=== PATIENT | female | born 1965 | race Caucasian/White ===

== ENCOUNTER 2023-08-13 09:40 | Day surgery (SDC) | payer MEDICARE, OTHER ==
[2023-08-07 10:06] VITALS: BP 120/77
[~2023-08-13] VITALS: Ht 162.6 cm; Wt 105.9 kg
[~2023-08-13 09:40] MED LIST: CLOTRIMAZOLE-BE15 GM TOP; DICYCLOMINE HCL10 MG PO; HYDROMORPHONE HC4 MG PO; IBLOOD GLUCOSE TEST STRIP 1 EA TEST VI PRN; LACTATED RINGER'S 1,000 ML IV SCH; LIDOCAINE HCL 1% 5 ML SDV INJ ONE; METOPROLOL SUCC25 MG PO; NARCAN4 MG NS; NITROGLYCERIN12 GM TL; ONDANSETRON HCL4 MG PO; PANTOPRAZOLE SO20 MG PO; PROMETHAZINE HC25 M1 PO; PROMETHAZINE HC25 MG PR; VITAMIN D31250 MC1 PO
[2023-08-13 10:41] VITALS: BP 141/69
[2023-08-13 12:01] LABS: BASOPHILS, ABSOLUTE 0.1 %; EOSINOPHILS 1.3 % (0-6); EOSINOPHILS, ABSOLUTE 0.1; HEMATOCRIT 42.8 % (35.0-50.0); HEMOGLOBIN 14.3 g/dL (12.0-18.0); LYMPHOCYTES 29.2 % (24-44); LYMPHOCYTES, ABSOLUTE 2.9; MCH 30.8 (27-36); MCHC 33.3 g/dl (30-36); MCV 92.5 fl (81-99); MONOCYTES 7.5 % (0-12); MONOCYTES, ABSOLUTE 0.7; NEUTROPHILS, ABSOLUTE 6.1; PLATELET COUNT 241 K/uL (140-440); RBC 4.63 M/ul (4.3-5.7); RDW 13.7 (10.5-15.0)
[2023-08-13] MEDS ORDERED: LIDOCAINE HCL 2% 5 ML SDV ONE (12:01)
[2023-08-13] MEDS ORDERED: propofoL 200 MG/20 ML VIAL ONE (12:01)
--- NOTE | 2023-08-13 12:33 | NUR ---
08/13/23 Kezia3 Cecily Cabrera 1228-PATIENT ARRIVED TO PACU ON 6L MASK RR EVEN NONAROUSABLE PATIENT LAYING PRONE BANDAIDS TO LEFT AND RIGHT SIDE OF LOWER BACK CDI. IVF INFUSING. SR.
--- NOTE | 2023-08-13 12:34 | NUR ---
LE 1115: NEED FOR ULTRASOUND IV ON THIS PATIENT IS RELAYED TO ME. I PRESENT TO THE ROOM AND PATIENT REQUESTS AN IV IN HER LEFT ARM. SITE RITE ULTRASOUND IS USED TO VISUALIZE VENOUS ANATOMY. VEIN IDENTIFIED IN LEFT FOREARM LESS THAN 0.5 CM FROM THE SURFACE OF HER SKIN. LIDOCAINE SUBCUTANEOUS INJECTION IS USED. PATIENT JUMPS, CRIES OUT AND BEGINS BREATHING > 30 RESPIRATIONS/MINUTE. PATIENT CALMS AFTER APPROXIMATELY 3 MINUTES. UNABLE TO VISUALIZE THE VEIN ONCE MY PIV CATHETER IS UNDER THE SURVACE OF PATIENT'S SKIN. 2ND ATTEMPT IN LEFT UPPER ARM RESULTS IN THE SAME REACTION FROM THE PATIENT, DESPITE LIDOCAINE SUBCUTANEOUS NUMBING ATTEMPT. AGAIN, I AM UNABLE TO LOCATE THE VEIN AFTER 3 MINUTES. GAUZE AND COBAN ARE PLACED OVER THESE SITES AND NURSING TRAVEL MED SURG RN IS NOTIFIED OF NEED FOR ANOTHER NURSE TO START THIS PATIENT'S IV.
[2023-08-13 13:01] VITALS: BP 130/68
--- NOTE | 2023-08-14 11:57 | EKG ---
[facility] [address] [facility] [place], [place] [address] Signed Normal sinus rhythm Normal ECG No previous ECGs available Confirmed by Belinda Flowers ([id number]) on 08/14/2023 11:57:35 AM Electronically Signed By: BELINDA FLOWERS MD 08/14/23 1157 PATIENT NAME: GABE LYN Electrocardiogram DATE OF : 65 PHYSICIAN: BELINDA FLOWERS MD REPORT #: [id number] REPORT IS CONFIDENTIAL AND NOT TO BE RELEASED WITHOUT AUTHORIZATION
[2023-08-14 14:32] LABS: HCV QNT BY NAAT (IU/ML) Not Detected (()); HCV QNT BY NAAT (LOG IU/ML) Not Detected (()); HCV QNT BY NAAT INTERP Not Detected (Not Detected)
== END 2023-08-13 13:10 | disposition home or self-care (01) ==
LOC: OPS 09:40 → DS 09:40 → OPS 12:00
PROVIDERS: ATTEND Specialist
DX: D47.1 Chronic myeloproliferative disease (principal); F43.12 Post-traumatic stress disorder, chronic; D72.829 Elevated white blood cell count, unspecified; Z88.8 Allergy status to other drugs, medicaments and biological substances
CPT/HCPCS: 01112; 36415; 85025; 87522; 93005; 93010; J2001; J2704; J7121

== ENCOUNTER 2024-04-11 12:35 | Emergency (ER) | payer MEDICARE, OTHER ==
[~2024-04-11] VITALS: Ht 162.6 cm; Wt 103.0 kg
--- OUTSIDE RECORDS SUMMARY | ~2024-04-11 | XMS | Continuity of Care Document ---
Demographics + + + | Address | [address] | | | [place] [address] | + + + | Preferred Language | Unknown | + + + | Marital Status | Unknown | + + + | Hindu Affiliation | Unknown | + + + | Race | White | + + + | Ethnic Group | Unknown | + + + Author + + + | Author | [facility] | + + + | Organization | [facility] | + + + | Address | [address] | | | [place] [address] | + + + | Phone | | + + + Care Team Providers + + + + | Care Figure Clerk Name | Role | Phone | + + + + Unavailable | Unavailable | + + + + Unavailable | Unavailable | + + + + Allergies No information. Encounters No information. Functional Status No information. Immunizations No information. Medications + + + + | date | description | facility | + + + + | 2024-01-14 00:00 | HYDROmorphone HCl 4 MG | [facility] | | | Oral Tablet | | + + + + | 2024-01-14 00:00 | HYDROmorphone HCl 4 MG | [facility] | | | Oral Tablet | | + + + + | 2024-01-16 00:00 | Scopolamine 1 MG/3DAYS | [facility] | | | Transdermal Patch 72 Hour | | + + + + | 2024-01-16 00:00 | Scopolamine 1 MG/3DAYS | [facility] | | | Transdermal Patch 72 Hour | | + + + + | 2024-01-16 00:00 | 72 HR scopolamine 0.0139 | [facility] | | | MG/HR Transdermal System | | + + + + | 2024-01-16 00:00 | 72 HR scopolamine 0.0139 | [facility] | | | MG/HR Transdermal System | | + + + + | 2024-01-14 00:00 | hydromorphone | [facility] | | | hydrochloride 4 MG Oral | | | | Tablet | | + + + + | 2024-01-14 00:00 | hydromorphone | [facility] | | | hydrochloride 4 MG Oral | | | | Tablet | | + + + + Problems + + + + | date | description | facility | + + + + | 2024-01-16 00:00 | Morbid obesity (disorder) | [facility] | + + + + | 2024-01-16 00:00 | Morbid obesity (disorder) | [facility] | | | | | + + + + | 2024-01-16 00:00 | OBESITY, MORBID, BMI >39 | [facility] | + + + + | 2024-01-16 00:00 | OBESITY, MORBID, BMI >39 | [facility] | | | | | + + + + | 2024-01-16 00:00 | Excessive oral intake | [facility] | | | (finding) | | + + + + | 2024-01-16 00:00 | Excessive oral intake | [facility] | | | (finding) | | + + + + | 2024-01-16 00:00 | NAUSEA ALONE | [facility] | + + + + | 2024-01-16 00:00 | NAUSEA ALONE | [facility] | | | | | + + + + | 2024-01-16 00:00 | Obesity Morbid Due To | [facility] | | | Excess Calories | | + + + + | 2024-01-16 00:00 | Obesity Morbid Due To | [facility] | | | Excess Calories | | + + + + | 2024-01-16 00:00 | Nausea | [facility] | + + + + | 2024-01-16 00:00 | Nausea | [facility] | | | | | + + + + Procedures No information. Results/Labs No information. Social History + + + + | date | description | facility | + + + + | 2024-01-14 00:00 | Unknown if ever smoked | [facility] | + + + + | 2024-01-14 00:00 | Ex-smoker (finding) | [facility] | + + + + | 2024-01-16 00:00 | Unknown if ever smoked | [facility] | + + + + | 2024-01-16 00:00 | Ex-smoker (finding) | [facility] | + + + + | 2024-02-11 00:00 | Unknown if ever smoked | [facility] | | | | | + + + + | 2024-02-11 00:00 | Ex-smoker (finding) | [facility] | | | | | + + + + | 2024-02-12 00:00 | Unknown if ever smoked | [facility] | | | | | + + + + | 2024-02-12 00:00 | Ex-smoker (finding) | [facility] | | | | | + + + + Vital Signs + + + + + | date | measurement | value | units | + + + + + | 2024-01-16 00:00 | BMI | 40.2 | 1 | + + + + + | 2024-01-16 00:00 | BP_diastolic | 78 | mmHg | + + + + + | 2024-01-16 00:00 | BP_systolic | 132 | mmHg | + + + + + | 2024-01-16 00:00 | BSA | 2.1 | 1 | + + + + + | 2024-01-16 00:00 | heart_rate | 1|1| | completed | + + + + + | 2024-01-16 00:00 | heart_rate | 87 | /min | + + + + + | 2024-01-16 00:00 | height_metric | 162.56 | cm | + + + + + | 2024-01-16 00:00 | height_standard | 64 | in | + + + + + | 2024-01-16 00:00 | o2_saturation | 94 | % | + + + + + | 2024-01-16 00:00 | respiration_rate | 16 | /min | + + + + + | 2024-01-16 00:00 | temperature_metric | 36.67 | C | | | | | | + + + + + | 2024-01-16 00:00 | | 98 | F | | | temperature_standar | | | | | d | | | + + + + + | 2024-01-16 00:00 | weight_metric | 106.14 | kg | + + + + + | 2024-01-16 00:00 | weight_standard | 234 | lb | + + + + + | 2024-01-16 00:00 | BMI | 40.2 | 1 | + + + + + | 2024-01-16 00:00 | BP_diastolic | 78 | mmHg | + + + + + | 2024-01-16 00:00 | BP_systolic | 132 | mmHg | + + + + + | 2024-01-16 00:00 | BSA | 2.1 | 1 | + + + + + | 2024-01-16 00:00 | heart_rate | 1|1| | completed | + + + + + | 2024-01-16 00:00 | heart_rate | 87 | /min | + + + + + | 2024-01-16 00:00 | height_metric | 162.56 | cm | + + + + + | 2024-01-16 00:00 | height_standard | 64 | in | + + + + + | 2024-01-16 00:00 | o2_saturation | 94 | % | + + + + + | 2024-01-16 00:00 | respiration_rate | 16 | /min | + + + + + | 2024-01-16 00:00 | temperature_metric | 36.67 | C | | | | | | + + + + + | 2024-01-16 00:00 | | 98 | F | | | temperature_standar | | | | | d | | | + + + + + | 2024-01-16 00:00 | weight_metric | 106.14 | kg | + + + + + | 2024-01-16 00:00 | weight_standard | 234 | lb | + + + + +"
[~2024-04-11 12:35] MED LIST changes: -IBLOOD GLUCOSE TEST STRIP 1 EA TEST VI PRN; -LACTATED RINGER'S 1,000 ML IV SCH; -LIDOCAINE HCL 1% 5 ML SDV INJ ONE
[2024-04-11] MEDS ORDERED: DILAUDID4 MG PO ×2 (13:14)
[2024-04-11] MEDS ORDERED: HYDROmorphone HCL 2 MG TAB PO ONE (13:15)
[2024-04-11 13:25] VITALS: BP 131/73
== END 2024-04-11 13:25 | disposition home or self-care (01) ==
LOC: ED 12:35
DX: F11.23 Opioid dependence with withdrawal (principal); G89.29 Other chronic pain; I10 Essential (primary) hypertension; Z79.899 Other long term (current) drug therapy; Z88.5 Allergy status to narcotic agent; Z91.040 Latex allergy status; Z88.1 Allergy status to other antibiotic agents; Z88.2 Allergy status to sulfonamides
CPT/HCPCS: 99283

== ENCOUNTER 2025-02-16 08:37 | Day surgery (SDC) | payer MEDICARE, OTHER ==
[~2025-02-16] VITALS: Ht 162.6 cm; Wt 101.0 kg
[~2025-02-16 08:37] MED LIST changes: +DILAUDID4 MG PO; +IBLOOD GLUCOSE TEST STRIP 1 EA TEST VI PRN; +LACTATED RINGER'S 1,000 ML IV SCH; +LIDOCAINE HCL 1% 5 ML SDV INJ ONE
[2025-02-16 09:00] VITALS: BP 121/60
[2025-02-16 09:29] LABS: BASOPHILS 0.5 % (0.1-1.2); EOSINOPHILS 2.4 % (0.7-5.8); LYMPHOCYTES 29.6 % (19.3-51.7); MCH 31.4 PG (25.6-32.2); MCHC 33.0 g/dL (32.2-35.5); MCV 95.4 fL (79.4-94.8); MONOCYTES 6.7 % (4.7-12.5); NEUTROPHILS 60.1 % (34.0-71.1); RBC 4.77 M/uL (3.93-5.22)
[2025-02-16] MEDS ORDERED: LIDOCAINE HCL 2% 5 ML SDV ONE (11:00)
--- NOTE | 2025-02-16 11:28 | NUR ---
02/16/25 1128 Sandra Nielsen 1120: PT ARRIVES TO PACU REACTIVE/DROWSY. SHE IS CONNECTED TO MONITORS. REPROT RECEIVED FROM OR AND LAB AID. DANIEL 1127: REPORT RECEIVED FROM DR. LOBO. SHE ORDERED AN UPPER GI STUDY IN RADIOLOGY TO RULE OUT ACHALIA.
[2025-02-16 12:03] VITALS: BP 123/61
--- NOTE | 2025-02-21 15:07 | PATH ---
[facility] [address] [place], [place] [address] Signed SPECIMEN(S): A ANTRUM BIOPSY SPECIMEN(S): B ANTRUM BIOPSY SPECIMEN(S): C BODY BIOPSY SPECIMEN SOURCE: A. ANTRUM BIOPSY B. ANTRUM BIOPSY C. BODY BIOPSY CLINICAL HISTORY: Pre-: Dysphagia. Post: Gastritis. Rule out: A) pylorus. B) antrum. FINAL PATHOLOGIC DIAGNOSIS: A. antrum/pylorus biopsy: - Mild reactive gastropathy. - Negative for H. pylori like organisms by HE stain. - Negative for intestinal metaplasia, dysplasia, or malignancy. B. antrum/pylorus biopsy: - Unremarkable gastric body type mucosa. - Negative for H. pylori like organisms by HE stain. - Negative for intestinal metaplasia, dysplasia, or malignancy. C. stomach body biopsy: - Unremarkable gastric body type mucosa. - Negative for H. pylori like organisms by HE stain. - Negative for intestinal metaplasia, dysplasia, or malignancy. IRG MICROSCOPIC EXAMINATION: Histologic sections of all submitted blocks (or IHC as applicable) are digitally scanned and examined. These findings, together with the gross examination, support the pathologic diagnosis. GROSS DESCRIPTION: A. The specimen, labeled and designated "Nimco Stinson, " and designated on the requisition "antrum/pylorus biopsy," is received in formalin and consists of one atkinson soft tissue fragment that is 0.7 cm in greatest dimension. The specimen is entirely submitted in (A1). B. The specimen, labeled and designated "Nimco Stinson, 2." and designated on the requisition "antrum/pylorus biopsy," is received in formalin and consists of one atkinson soft tissue fragment that is 0.2 cm in greatest dimension. The specimen is entirely submitted in (B1). PATIENT NAME: GABE STINSON PATHOLOGY DATE OF : 65 REPORT #: [id number] PHYSICIAN: [facility] PATHOLOGY PCP: JATIN FARRIS REPORT IS CONFIDENTIAL AND NOT TO BE RELEASED WITHOUT AUTHORIZATION [facility] [address], [place] [address] Signed C. The specimen, labeled and designated "Stinson, B, " and designated on the requisition "stomach body biopsy," is received in formalin and consists of one atkinson soft tissue fragment that is 0.7 cm in greatest dimension. The specimen is entirely submitted in (C1). FB (under the direct supervision of a pathologist) The Gross Description was prepared using a voice recognition system. The report was reviewed for accuracy; however, sound-alike word errors, addition and/or deletions may occur. If there is any question about this report, please contact Client Services. ADDITIONAL NOTES: Immunohistochemical and/or in situ hybridization studies if performed in this case included appropriate positive controls that reacted as expected. This test was developed and its performance characteristics determined by [facility]. It has not been cleared or approved by the U.S. Food and Drug Administration. The FDA has determined that such clearance or approval is not necessary. This test is used for clinical purposes. It should not be regarded as investigational or for research. [facility] is certified under the Clinical Laboratory Improvement Amendments of 1988 (CLIA) as qualified to perform high complexity clinical laboratory testing. PERFORMING LABORATORY: Technical component was performed by [facility], [address] [place] [id number] (CLIA# [id number]). Professional interpretation was performed by [facility], [address] [place] [address] [place] [address] (CLIA#: [id number]). Diagnostician: Karlos Brock MD Pathologist Electronically Signed 02/21/2025 Copies: ~ PATIENT NAME: GABE STINSON PATHOLOGY DATE OF : 65 REPORT #: [id number] PHYSICIAN: B[facility]DON PATHOLOGY PCP: JATIN FARRIS REPORT IS CONFIDENTIAL AND NOT TO BE RELEASED WITHOUT AUTHORIZATION
== END 2025-02-16 12:15 | disposition home or self-care (01) ==
LOC: DS 08:37
PROVIDERS: ATTEND Surgery
PROC: 0DB68ZX Excision of Stomach, Via Natural or Artificial Opening Endoscopic, Diagnostic (ICD-10-PCS; principal; 2025-02-16 10:00)
DX: K31.9 Disease of stomach and duodenum, unspecified (principal); K29.70 Gastritis, unspecified, without bleeding; J45.909 Unspecified asthma, uncomplicated; I10 Essential (primary) hypertension; Z79.899 Other long term (current) drug therapy; Z88.0 Allergy status to penicillin; Z88.3 Allergy status to other anti-infective agents; Z91.040 Latex allergy status
CPT/HCPCS: 00731; 36415; 85025; 88305; J2003; J2704; J7121